=== PATIENT | female | born 1945 | race Caucasian/White ===

== ENCOUNTER 2024-06-27 07:57 | Outpatient (AMB) | payer MEDICARE, SELFPAY ==
[2024-06-27 08:04] VITALS: BP 131/65; PULSE 94; RESP 17; TEMP 36.3; O2SAT 98; BMI 27.6
--- NOTE | 2024-06-27 08:04 | PD.ORTHCLVIS ---
Vital signs 06/27/24 08:04 Height 1.57 m Height Method Stated Weight 68.181 kg Weight Measurement Method Standing Scale BMI 27.6 BP 131/65 H Blood Pressure Source Automatic Cuff Blood Pressure Location Right Upper Arm Position Sitting Respiration 17 Pulse 94 Pulse Source Monitor Temp 97.4 F Temp Source Temporal Artery Scan Pulse Oximetry (%) 98 Oxygen Delivery Method Room Air Med/Allergies Allergies & Medications Allergies adhesive tape Allergy (Unknown, Verified 06/27/24 08:05) Sulfa (Sulfonamide Antibiotics) Allergy (Unknown, Verified 06/27/24 08:05) Medication Reconciliation Multivitamins * (CENTRUM *) 1 tab PO QDAY ##0 07/03/14 [History Confirmed 06/27/24] gabapentin 100 mg capsule 300 mg PO BID #0 caps 07/03/14 [History Confirmed 06/27/24] amlodipine 5 mg tablet 5 mg PO HS 04/01/21 [History Confirmed 06/27/24] olmesartan 20 mg tablet 20 mg PO DAILY 04/01/21 [History Confirmed 06/27/24] Lactobacillus 40-Bifidobact 3-S.thermophilus 100 billion cell capsule (Probiotic) 1 cap PO DAILY 06/09/24 [History Confirmed 06/27/24] acetaminophen 500 mg tablet (Acetaminophen Extra Strength) 1,000 mg (2 x 500 mg) PO Q6H PRN pain #90 tabs 06/09/24 [Rx Confirmed 06/27/24] aspirin 81 mg tablet,delayed release 81 mg PO BID #60 tabs 06/09/24 [Rx Confirmed 06/27/24] doxycycline hyclate 100 mg tablet 100 mg PO BID #14 tabs 06/09/24 [Rx Confirmed 06/27/24] folic acid 800 mcg tablet 0.8 mg PO QDAY 06/09/24 [History Confirmed 06/27/24] gabapentin 300 mg capsule 300 mg PO .qhs #30 caps 06/09/24 [Rx Confirmed 06/27/24] oxycodone 5 mg tablet 5 mg PO Q6H PRN pain #28 tabs 06/09/24 [Rx Confirmed 06/27/24] patiromer calcium sorbitex 8.4 gram oral powder packet (Veltassa) 8.4 g PO USEASDIRECTD 06/09/24 [History Confirmed 06/27/24] sennosides 8.6 mg-docusate sodium 50 mg tablet (Senna-S) 1 tab-cap PO QDAY #30 tabs 06/09/24 [Rx Confirmed 06/27/24] acetaminophen 500 mg tablet (Acetaminophen Extra Strength) 1,000 mg (2 x 500 mg) PO Q6H PRN pain #90 tabs 06/19/24 [Rx Confirmed 06/27/24] cyclobenzaprine 5 mg tablet 5 mg PO TID muscle spasm #45 tabs 06/19/24 [Rx Confirmed 06/27/24] oxycodone 5 mg tablet 5 mg PO Q6H PRN pain #28 tabs 06/19/24 [Rx Confirmed 06/27/24] Subjective Visit Visit for: post op #1 and knee Immunization / Flu Flu Vaccine in the Last 12 Months: Yes Flu Vaccine Exclusion Criteria: Already Received History of Present Illness Chief complaint: 2 WK POST OP Patient is doing well status post right total knee replacement. She is doing well Pain Pain level (0-10): 6 Pain duration: COMES AND GOES Pain location: anterior Pain quality: sharp, dull and aching Pain timing: increases with activity Ambulatory data Ambulatory device: walker Treatments Improvement with previous injections: No Improvement with PT: No Improvement with NSAIDS: n/a Review of Systems Review of Systems: All systems negative unless otherwise noted in HPI. Exam Exam Patient is in no acute distress and is cooperative with the examination today. Patient has a normal mood and affect. Breathing is nonlabored. In no respiratory distress. Bilateral extremities were evaluated and demonstrates sensation intact to light touch. Palpable pedal pulses are present. No significant edema is present. Right knee incision is clean dry and intact Assessment and Plan Problem List (1) History of total right knee replacement: Status: Acute Plan: Patient is doing well status post right total knee replacement. She will start therapy outpatient. Will see her in 4 weeks Advanced Care Planning Discussion Advance care planning discussed with:: patient Office Procedures GNS Level of Care Nursing/Assessment Patient Status: Established Patient Nursing Assessment/Reassesment: Medication Reconciliation, Update PMH in EMR and Vital Signs Coordination of Care: Complex Care and Chronic Disease 1-5, Education Complex Pt/Fam, Consent,records obtained, informed consent, 1 Ins Authorization, Results/Orders obtained and Staff clarify orders Established Patient Charge Established Patient Point Assignment: 110 Established Patient Point Charge: EP Level 3 (80-115) Past Medical History Past Medical History Have you ever been diagnosed with any of the following: Neurological Problems Seizures: No Peripheral Neuropathy: Yes Migraine: No Head Trauma: No Cardiology Problems Heart Murmur: Yes Congestive Heart Failure: No Edema: No Hypertension: Yes Respiratory Problems Chronic Obstructive Pulmonary Disease (COPD): No Sleep Apnea: No Smoking: No Smoking Exposure: No Genital/Urinary Problems Renal Disease: No Reproductive Problems Breast Cancer: Yes (right breast) Previous Pregnancies: Yes Musculoskeletal Problems Arthritis: Yes Head,Eye,Nose,Throat Problems Cataracts: Yes (bilateral) Endocrine Problems Diabetes Mellitus Type 1: No Diabetes Mellitus Type 2: No Hypothyroidism: No Blood Problems Anemia: No Other Problems Hospitalization: Yes (surgery, breast cancer,) Shingles: No Falls: No Blood Transfusions: No Blood Transfusion Reaction: No Anesthesia Reactions: No Chemotherapy: Yes (2002) Radiation Therapy: Yes (2002) Measles: Yes Mumps: Yes Cancer: Yes Surgical History Total Knee Replacement: Yes Hysterectomy: No
== END 2024-06-27 08:49 | disposition home or self-care (01) ==
LOC: HODSRG 07:57
PROVIDERS: PCP Internal Medicine; Referring Provider Internal Medicine; Supervising Provider Orthopaedic Surgery Adult Reconstructive Orthopaedic Surgery; Visit Provider Orthopaedic Surgery Adult Reconstructive Orthopaedic Surgery
DX: Z96.651 Presence of right artificial knee joint (principal); I10 Essential (primary) hypertension
CPT/HCPCS: 99213; G0463

== ENCOUNTER → 2024-07-19 | Outpatient (CLI) | payer MEDICARE, SELFPAY ==
--- NOTE | 2024-07-19 | XR_ITS ---
Examination: Right knee 4 views TECHNIQUE: AP oblique lateral axial right knee 4 views standing Exam date and time: July 19, 2024 0947 hours INDICATIONS: Right knee surgery 5 weeks ago. FINDINGS: Moderate osteopenia Total right knee arthroplasty. Satisfactory alignment No loosening of the prosthetic components No fracture IMPRESSION: Total right knee arthroplasty with satisfactory alignment
[2024-07-19 08:06] LABS: Collection Type, Urine Clean Catch; Squamous Epithelial Cell,Urine 0 /hpf (0-5)
[2024-07-19 08:34] LABS: Bilirubin,Urine Negative (Negative); Blood,Urine Negative (Negative); Clarity,Urine Clear (Clear/Hazy); Color,Urine Lt-Yellow (Lt Yel-Yel); Glucose, Urine Negative (Negative); Ketones,Urine Negative (Negative); Leukocyte Esterase,Urine Negative (Negative); Nitrite,Urine Negative (Negative); Protein,Urine Negative (Neg - Trace); RBC,Urine 1 /hpf (0-3); Specific Gravity,Urine 1.012 (1.001-1.035); Urobilinogen,Urine Negative mg/dL (0.0-1.0); WBC,Urine < 1 /hpf (0-5)
[2024-07-19 08:36] LABS: Basophils # (Auto) 0.1 Thou/mm3 (0.0-0.2); Basophils % (Auto) 1 % (0-2.5); Eosinophils # (Auto) 0.2 Thou/mm3 (0.0-0.5); Eosinophils % (Auto) 3 % (0-10); Hematocrit 34.3 % (36.0-46.0); Hemoglobin 11.3 g/dL (12.0-16.0); Immature Granulocytes % (Auto) 0 % (0-0); Immature Granulocytes Auto 0.02 Thou/mm3 (0.00-0.00); Lymphocytes # (Auto) 1.7 Thou/mm3 (1.0-4.8); Lymphocytes % (Auto) 34 % (10-50); Mean Corpuscular HGB Conc 32.9 g/dl (31.0-37.0); Mean Corpuscular Volume 106 fL (80-100); Monocytes # (Auto) 0.4 Thou/mm3 (0.0-0.8); Monocytes % (Auto) 9 % (0-12); Neutrophils # (Auto) 2.5 Thou/mm3 (1.8-7.7); Neutrophils % (Auto) 52 % (37-80); Nucleated Red Blood Cell # 0.02 Thou/mm3 (0.00-0.00); Nucleated Red Blood Cell % 0 /100 WBC (0); Platelet Count 307 Thou/mm3 (140-440); RDW Standard Deviation 60.9 fL (36.4-46.3); Red Blood Count 3.23 Miln/mm3 (4.00-5.20); White Blood Count 4.8 Thou/mm3 (3.6-11.0)
[2024-07-19 08:37] LABS: Glucose Estimated Average 88 mg/dL (80-131); Hemoglobin A1C 4.7 % Hgb (4.8-6.0)
[2024-07-19 08:51] LABS: Vitamin B12 675 pg/mL (211-911); Vitamin D 25 Hydroxy Total 33.6 ng/mL (7.3-40.2)
[2024-07-19 08:56] LABS: Alanine Aminotransferase 23 U/L (10-49); Alkaline Phosphatase 116 U/L (46-116); Anion Gap 8 (7-16); Aspartate Amino Transferase 16 U/L (0-34); BUN/Creatinine Ratio 22 Ratio (12-20); Bilirubin,Total 0.5 mg/dL (0.3-1.2); Blood Urea Nitrogen 22 mg/dL (9-23); Calcium 9.9 mg/dL (8.3-10.6); Calcium (Corrected) 9.9 mg/dL (8.5-10.1); Carbon Dioxide 25.9 mMol/L (20.0-31.0); Chloride 104 mMol/L (98-107); Cholesterol 187 mg/dL (132-200); Globulin 2.5 gm/dL (2.3-3.5); Glucose 107 mg/dL (74-106); HDL Cholesterol 62 mg/dL (40-60); LDL Cholesterol,Calculated 110 mg/dL (0-130); Osmolality,Calculated 278 (275-295); Potassium 4.7 mMol/L (3.4-5.1); Sodium 138 mMol/L (136-145); Thyroid Stimulating Hormone 2.71 uIU/mL (0.55-4.78); Total Protein 7.5 gm/dL (5.7-8.2); Triglycerides 77 mg/dL (30-150); Uric Acid 7.1 mg/dL (3.1-7.8); eGFR 58 See Note
== END | disposition home or self-care (01) ==
LOC: COPL 07:20
PROVIDERS: PCP Internal Medicine; Referring Provider Orthopaedic Surgery Adult Reconstructive Orthopaedic Surgery; Visit Provider Radiology Diagnostic Radiology
DX: M17.11 Unilateral primary osteoarthritis, right knee (principal); Z96.651 Presence of right artificial knee joint; Z00.00 Encounter for general adult medical examination without abnormal findings; I10 Essential (primary) hypertension; D51.9 Vitamin B12 deficiency anemia, unspecified; E55.9 Vitamin D deficiency, unspecified
CPT/HCPCS: 36415; 73564; 80053; 80061; 81001; 82306; 82607; 83036; 84443; 84550; 85025

== ENCOUNTER 2024-07-25 10:52 | Outpatient (AMB) | payer MEDICARE, SELFPAY ==
--- NOTE | 2024-07-25 11:19 | PD.ORTHCLVIS ---
Vital signs 07/25/24 11:20 Height 1.57 m Height Method Stated Weight 68.096 kg Weight Measurement Method Standing Scale BMI 27.6 BP 147/72 H Blood Pressure Source Automatic Cuff Blood Pressure Location Right Upper Arm Position Sitting Respiration 18 Pulse 76 Pulse Source Monitor Temp 97.5 F Temp Source Temporal Artery Scan Pulse Oximetry (%) 96 Oxygen Delivery Method Room Air Med/Allergies Allergies & Medications Allergies adhesive tape Allergy (Unknown, Verified 07/25/24 11:27) Sulfa (Sulfonamide Antibiotics) Allergy (Unknown, Verified 07/25/24 11:27) Subjective Visit Visit for: follow up visit Immunization / Flu Flu Vaccine in the Last 12 Months: Yes Flu Vaccine Exclusion Criteria: No Exclusion Criteria History of Present Illness Chief complaint: POSTOP Patient is doing well status post right total knee replacement. She is doing well Pain Pain level (0-10): 3 Pain duration: COMES AND GOES Pain location: anterior and posterior Pain quality: sharp, dull and aching Pain timing: increases with activity Ambulatory data Ambulatory device: none Treatments Improvement with previous injections: No Improvement with PT: No Improvement with NSAIDS: n/a Review of Systems Review of Systems: All systems negative unless otherwise noted in HPI. Exam Exam Patient is in no acute distress and is cooperative with the examination today. Patient has a normal mood and affect. Breathing is nonlabored. In no respiratory distress. Bilateral extremities were evaluated and demonstrates sensation intact to light touch. Palpable pedal pulses are present. No significant edema is present. Right knee incision is clean dry and intact Assessment and Plan Problem List (1) History of total right knee replacement: Status: Acute Plan: Patient is doing well status post right total knee replacement. She will start therapy outpatient. Will see her in 6 weeks Advanced Care Planning Discussion Advance care planning discussed with:: patient and spouse Office Procedures GNS Level of Care Nursing/Assessment Patient Status: Established Patient Nursing Assessment/Reassesment: Medication Reconciliation, Update PMH in EMR and Vital Signs Coordination of Care: Complex Care and Chronic Disease 1-5, Education Complex Pt/Fam, Consent,records obtained, informed consent, Results/Orders obtained and Staff clarify orders Established Patient Charge Established Patient Point Assignment: 95 Established Patient Point Charge: EP Level 3 (80-115) Past Medical History Past Medical History Have you ever been diagnosed with any of the following: Neurological Problems Seizures: No Peripheral Neuropathy: Yes Migraine: No Head Trauma: No Cardiology Problems Heart Murmur: Yes Congestive Heart Failure: No Edema: No Hypertension: Yes Respiratory Problems Chronic Obstructive Pulmonary Disease (COPD): No Sleep Apnea: No Smoking: No Smoking Exposure: No Genital/Urinary Problems Renal Disease: No Reproductive Problems Breast Cancer: Yes (right breast) Previous Pregnancies: Yes Musculoskeletal Problems Arthritis: Yes Head,Eye,Nose,Throat Problems Cataracts: Yes (bilateral) Endocrine Problems Diabetes Mellitus Type 1: No Diabetes Mellitus Type 2: No Hypothyroidism: No Blood Problems Anemia: No Other Problems Hospitalization: Yes (surgery, breast cancer,) Shingles: No Falls: No Blood Transfusions: No Blood Transfusion Reaction: No Anesthesia Reactions: No Chemotherapy: Yes (2002) Radiation Therapy: Yes (2002) Measles: Yes Mumps: Yes Cancer: Yes Surgical History Total Knee Replacement: Yes Hysterectomy: No
[2024-07-25 11:20] VITALS: BP 147/72; PULSE 76; RESP 18; TEMP 36.4; O2SAT 96; BMI 27.6
== END 2024-07-25 11:33 | disposition home or self-care (01) ==
LOC: HODSRG 10:52
PROVIDERS: PCP Internal Medicine; Referring Provider Internal Medicine; Supervising Provider Orthopaedic Surgery Adult Reconstructive Orthopaedic Surgery; Visit Provider Orthopaedic Surgery Adult Reconstructive Orthopaedic Surgery
DX: Z96.651 Presence of right artificial knee joint (principal); I10 Essential (primary) hypertension
CPT/HCPCS: 99213; G0463

== ENCOUNTER → 2024-08-07 | Outpatient (CLI) | payer MEDICARE, SELFPAY ==
--- NOTE | 2024-08-07 13:00 | XR_ITS ---
Examination: Breast ultrasound, unilateral, left complete Date and time of exam: August 07, 2024 1317 hours INDICATIONS: Mammogram June 27, 2024 10 mm focal asymmetry upper left breast MLO view, 3.7 cm from the nipple Technique: Real-time harper scale ultrasonographic imaging performed left breast including all 4 quadrants as well as nipple retroareolar and axillary region. Findings: No cystic or solid mass IMPRESSION: BI-RADS Category 1: Negative study
--- NOTE | 2024-08-07 13:30 | XR_ITS ---
Examination: Diagnostic digital mammography, unilateral, left Computer aided detection 3-D breast Tomosynthesis, unilateral Date and time of exam: August 07, 2024 1325 hours INDICATIONS: Mammogram June 27, 2024 10 mm focal asymmetry upper left breast MLO view 3.7 cm the nipple Technique: Nonmagnified MLO, CC views of the left breast have been obtained, reconstructed from 3-D Tomosynthesis images. R2 computer aided detection program utilized for evaluation of suspicious masses and/or abnormal calcifications. 3-D Tomosynthesis images obtained. Findings: Scattered areas of fibroglandular density Benign calcifications There does remain focal asymmetry upper left breast MLO view, 10 mm Impression: BI-RADS category 3: Probably benign findings Recommend 1 additional 6 month left mammogram follow-up to document stability of focal asymmetry described above
== END | disposition home or self-care (01) ==
LOC: CDIM 12:55
PROVIDERS: PCP Internal Medicine; Referring Provider Internal Medicine; Visit Provider Internal Medicine
DX: R92.8 Other abnormal and inconclusive findings on diagnostic imaging of breast (principal); N64.89 Other specified disorders of breast
CPT/HCPCS: 76641; 77061; 77065; G0279

== ENCOUNTER 2024-08-11 08:00 | Outpatient (RCR) | payer MEDICARE, SELFPAY ==
--- NOTE | 2024-07-20 11:39 | PT.OIERPT ---
PT OP Initial Eval Patient Information Outpatient Physical Therapy Treatment Date: 07/20/24 Visit Reasons: Post op Right knee Medical Diagnosis: Right Knee OA Treatment Dx #1: Right Knee Mobility Deficits Treatment Dx #2: Right Knee Pain Start of Care: 07/20/24 Date of Onset: 06/12/24 Smoking Status Smoking Status: Never smoker Initial Assessment Subjective: Pt is a 79 y/o female s/p right TKA 06/12/24. Pt received a few sessions of homehealth PT but felt it was not helpful.Pt still has pain (7/10) with all activities. Pt has limitation with standing, walking, chores, self care, balance, getting in/out of car, and performing recreational activities. Objective: Right Knee AROM: -10 deg to 82 deg Right Knee PROM: -7 deg to 93 deg Right Knee MMTs: grossly 3+/5 Right Hip MMTs: grossly 3/5 Assessment: Pt demonstrate right knee mobility and strength deficits s/p TKA leading to difficulty with ADLs. Pt will benefit from physical therapy to increase ROM, strength, and work on mobility. Short Term and S[employer] Enterprise Portal Consultant Goals 1) Decrease knee extension lag to -6 deg in 12 wks to have a normal gait pattern 2) Increase right knee flexion AROM to 115 deg in 12 wks to be able to perform squatting activities 3) Increase right knee MMTs grossly to 4/5 in 12 wks to be able to perform stairs and steps 4) Increase right hip MMTs grossly to 4-/5 in 12 wks to be able to walk more than 30 mins 5) Indep with HEP Treatment Plan 1) Manual Therapy 2) Therapeutic Activities 3) Therapeutic Exercises 4) Modalities (ice, heat) 5) Balance Training 6) Gait Training Frequency and Duration: 2 x wk for 12 wks Certification Dates: 07/20/24 to 10/18/24 Procedure Charges OP PT Eval Mod Complex 30 minutes: Yes
--- NOTE | 2024-07-25 10:35 | PT.ODAYNRPT ---
PT Outpatient Daily Note OP Daily Note Outpatient Physical Therapy Treatment Date: 07/25/24 Visit Reasons: Post op Right knee Subjective: Pt reports knee stiffness, mentioned she has a follow up with surgeon Jeffrey today after PT session. Objective: Please see flow sheet for ther ex list. Assessment: Pt instructed and educated on HEP. Plan: Continue with POC. Length of Time (minutes) of Treatment: 30 Minutes RETAIL AND PROMOTIONS COORDINATOR Service Modifier Method I: Divide the number of min of care provided by the RETAIL AND PROMOTIONS COORDINATOR/VARSHA by the total min of care provided then multiply by 100. If greater than 11 percent modifier is required. Method II: Divide the total time of care provided to patient by 10 (round to the nearest whole number) and add 1 min. to set the minimum time requirement. If treatment total was 60 min., then 10% of 6 min PT CQ modifier applied: CQ Modifier applied Procedure Charges Therapeutic Exercise 30 minutes: Yes
--- NOTE | 2024-07-27 10:42 | PT.ODAYNRPT ---
PT Outpatient Daily Note OP Daily Note Outpatient Physical Therapy Treatment Date: 07/27/24 Visit Reasons: Post op Right knee Subjective: Pt reports R knee is doing better. As per pt she had follow up with surgeon a few days ago and surgeon content with current progress. Objective: Please see flow sheet for ther ex list. Assessment: Able to reach increase range during PROM stretches in the direction of flexion. Plan: Continue with POc. Length of Time (minutes) of Treatment: 30 Minutes BULL GANG WORKER Service Modifier Method I: Divide the number of min of care provided by the BULL GANG WORKER/HOSPITAL SALES REPRESENTATIVE by the total min of care provided then multiply by 100. If greater than 11 percent modifier is required. Method II: Divide the total time of care provided to patient by 10 (round to the nearest whole number) and add 1 min. to set the minimum time requirement. If treatment total was 60 min., then 10% of 6 min PT CQ modifier applied: CQ Modifier applied Procedure Charges Therapeutic Exercise 30 minutes: Yes
--- NOTE | 2024-08-01 14:10 | PT.ODAYNRPT ---
PT Outpatient Daily Note OP Daily Note Outpatient Physical Therapy Treatment Date: 08/01/24 Visit Reasons: Post op Right knee Subjective: Pt reports R knee is stiff today. Objective: Please see flow sheet for ther ex list. Assessment: Performed PROM to pt tolerance, able to reach range past 90 deg with pain. Plan: Continue with pOC. Length of Time (minutes) of Treatment: 30 Minutes CONTRACT ACCOUNTANT Service Modifier Method I: Divide the number of min of care provided by the CONTRACT ACCOUNTANT/VARSHA by the total min of care provided then multiply by 100. If greater than 11 percent modifier is required. Method II: Divide the total time of care provided to patient by 10 (round to the nearest whole number) and add 1 min. to set the minimum time requirement. If treatment total was 60 min., then 10% of 6 min PT CQ modifier applied: CQ Modifier applied Procedure Charges Therapeutic Exercise 30 minutes: Yes
--- NOTE | 2024-08-04 14:05 | PT.ODAYNRPT ---
PT Outpatient Daily Note OP Daily Note Outpatient Physical Therapy Treatment Date: 08/04/24 Visit Reasons: Post op Right knee Subjective: Pt reports progress with R knee, mentioned knee has loosened up making it easier to walk and perform ADL's. Objective: Please see flow sheet for ther ex list. R knee AROM 89 deg. Assessment: Pt ambulating with normal gait no AD indicating progress. Pt ROM continues to improve as indicated in above measurements. Plan: Continue with POc. Length of Time (minutes) of Treatment: 30 Minutes DIRECTOR OF CORPORATE COMMUNICATIONS Service Modifier Method I: Divide the number of min of care provided by the DIRECTOR OF CORPORATE COMMUNICATIONS/VARSHA by the total min of care provided then multiply by 100. If greater than 11 percent modifier is required. Method II: Divide the total time of care provided to patient by 10 (round to the nearest whole number) and add 1 min. to set the minimum time requirement. If treatment total was 60 min., then 10% of 6 min PT CQ modifier applied: CQ Modifier applied Procedure Charges Therapeutic Exercise 30 minutes: Yes
--- NOTE | 2024-08-11 09:04 | PT.ODAYNRPT ---
PT Outpatient Daily Note OP Daily Note Outpatient Physical Therapy Treatment Date: 08/11/24 Visit Reasons: Post op Right knee Subjective: Pt's knee sore from packing and going up/down RV stairs. Objective: Right Knee AROM: 105 deg Assessment: progressing with knee ROM with less pain reported Plan: Continue with PT Length of Time (minutes) of Treatment: 30 Minutes Procedure Charges Therapeutic Exercise 30 minutes: Yes
== END 2024-08-15 23:59 | disposition home or self-care (01) ==
LOC: CPTX 08:00
PROVIDERS: PCP Internal Medicine; Referring Provider Orthopaedic Surgery Adult Reconstructive Orthopaedic Surgery; Visit Provider Orthopaedic Surgery Adult Reconstructive Orthopaedic Surgery
DX: M25.561 Pain in right knee (principal); R26.2 Difficulty in walking, not elsewhere classified; R26.89 Other abnormalities of gait and mobility; Z96.651 Presence of right artificial knee joint
CPT/HCPCS: 97110; 97162

== ENCOUNTER 2024-09-14 12:37 | Outpatient (RCR) | payer BC, MEDICARE, SELFPAY ==
--- NOTE | 2024-09-14 13:19 | PT.ODS1RPT ---
PT OP Progress/Discharge Note Date of Service: 09/14/24 Progress Note/DC Note Progress Note/Discharge Note: DC Note Patient Information Visit Reasons: POST OP RIGHT KNEE SURGERY Medical Diagnosis: Right Knee OA Treatment Dx #1: Right Knee Pain Service Continue Service or Discharge: Discharge Discharge Date: 09/14/24 Status Subjective: Pt's knee feels good. Pt mentioned she recently came back from her month long vacation. Pt has been able to walk, stand, perform chores, and recreational activities with minimal limitation. At this time Pt feels comfortable being release from care with exercises to continue at home. Objective: Right Knee AROM: -5 deg to 120 deg Right Knee MMTs: grossly 4/5 Right Hip MMTs: grossly 4-/5 SLS: 15 sec Assessment: Pt demonstrate functional right knee mobility and strength allowing her to resume ADLs with minimal limitation. Pt has met all goals in therapy and will no longer benefit from physical therapy. Pt was instructed on HEP last session and educated to continue exercises to maintain overall mobility. Pt performed all exercises safely, thank you for your referrals. Plan: D/C home with HEP and follow up with MD YANEZ Procedure Charges Therapeutic Exercise 30 minutes: Yes
== END 2024-09-15 23:59 | disposition home or self-care (01) ==
LOC: CPTX 12:37
PROVIDERS: PCP Orthopaedic Surgery Adult Reconstructive Orthopaedic Surgery; Referring Provider Orthopaedic Surgery Adult Reconstructive Orthopaedic Surgery; Visit Provider Orthopaedic Surgery Adult Reconstructive Orthopaedic Surgery
DX: M25.561 Pain in right knee (principal); R26.2 Difficulty in walking, not elsewhere classified; R26.89 Other abnormalities of gait and mobility; Z96.651 Presence of right artificial knee joint; M17.11 Unilateral primary osteoarthritis, right knee
CPT/HCPCS: 97110

== ENCOUNTER 2024-09-26 09:21 | Outpatient (AMB) | payer MEDICARE, SELFPAY ==
--- NOTE | 2024-09-26 09:59 | PD.ORTHCLVIS ---
Vital signs 09/26/24 10:00 Height 1.57 m Height Method Stated Weight 68.209 kg Weight Measurement Method Standing Scale BMI 27.6 BP 147/74 H Blood Pressure Source Automatic Cuff Blood Pressure Location Right Upper Arm Position Sitting Respiration 18 Pulse 67 Pulse Source Monitor Temp 97.7 F Temp Source Temporal Artery Scan Pulse Oximetry (%) 97 Oxygen Delivery Method Room Air Med/Allergies Allergies & Medications Allergies adhesive tape Allergy (Unknown, Verified 09/26/24 10:01) Sulfa (Sulfonamide Antibiotics) Allergy (Unknown, Verified 09/26/24 10:01) Medication Reconciliation Multivitamins * (CENTRUM *) 1 tab PO QDAY ##0 07/03/14 [History Confirmed 09/26/24] gabapentin 100 mg capsule 300 mg PO BID #0 caps 07/03/14 [History Confirmed 09/26/24] amlodipine 5 mg tablet 5 mg PO HS 04/01/21 [History Confirmed 09/26/24] olmesartan 20 mg tablet 20 mg PO DAILY 04/01/21 [History Confirmed 09/26/24] Lactobacillus 40-Bifidobact 3-S.thermophilus 100 billion cell capsule (Probiotic) 1 cap PO DAILY 06/09/24 [History Confirmed 09/26/24] acetaminophen 500 mg tablet (Acetaminophen Extra Strength) 1,000 mg (2 x 500 mg) PO Q6H PRN pain #90 tabs 06/09/24 [Rx Confirmed 09/26/24] aspirin 81 mg tablet,delayed release 81 mg PO BID #60 tabs 06/09/24 [Rx Confirmed 09/26/24] doxycycline hyclate 100 mg tablet 100 mg PO BID #14 tabs 06/09/24 [Rx Confirmed 09/26/24] folic acid 800 mcg tablet 0.8 mg PO QDAY 06/09/24 [History Confirmed 09/26/24] gabapentin 300 mg capsule 300 mg PO .qhs #30 caps 06/09/24 [Rx Confirmed 09/26/24] oxycodone 5 mg tablet 5 mg PO Q6H PRN pain #28 tabs 06/09/24 [Rx Confirmed 09/26/24] patiromer calcium sorbitex 8.4 gram oral powder packet (Veltassa) 8.4 g PO USEASDIRECTD 06/09/24 [History Confirmed 09/26/24] sennosides 8.6 mg-docusate sodium 50 mg tablet (Senna-S) 1 tab-cap PO QDAY #30 tabs 06/09/24 [Rx Confirmed 09/26/24] acetaminophen 500 mg tablet (Acetaminophen Extra Strength) 1,000 mg (2 x 500 mg) PO Q6H PRN pain #90 tabs 06/19/24 [Rx Confirmed 09/26/24] cyclobenzaprine 5 mg tablet 5 mg PO TID muscle spasm #45 tabs 07/16/24 [Rx Confirmed 09/26/24] oxycodone 5 mg tablet 5 mg PO Q6H PRN pain #28 tabs 07/16/24 [Rx Confirmed 09/26/24] tramadol 50 mg tablet 50 mg PO Q6H PRN pain #20 tabs 07/25/24 [Rx Confirmed 09/26/24] Exam Exam Patient is in no acute distress and is cooperative with the examination today. Patient has a normal mood and affect. Breathing is nonlabored. In no respiratory distress. Bilateral extremities were evaluated and demonstrates sensation intact to light touch. Palpable pedal pulses are present. No significant edema is present. Right knee incision is clean dry and intact. Rom is 0-120 degrees Assessment and Plan Problem List (1) History of total right knee replacement: Status: Acute Plan: Patient is doing well status post right total knee replacement. We will see her back in 7 months with new x-rays. She has no pain at all Advanced Care Planning Discussion Advance care planning discussed with:: patient and spouse Office Procedures GNS Level of Care Nursing/Assessment Patient Status: Established Patient Nursing Assessment/Reassesment: Medication Reconciliation, Update PMH in EMR and Vital Signs Coordination of Care: Complex Care and Chronic Disease 1-5, Education Complex Pt/Fam, Consent,records obtained, informed consent, Results/Orders obtained and Staff clarify orders Established Patient Charge Established Patient Point Assignment: 95 Established Patient Point Charge: EP Level 3 (80-115) MA Intake Visit Data Collection New Patient or Established: Established Patient (seen at [facility] within 3 years) Reason for Visit:: 2 MONTH FOLLOW UP Seen by Clinical Staff ONLY (RN/MA): No Verbal consent obtained for Telemed visit?: No Medical Laboratory Technical Officer Required: No PCP or OBGYN visit in last 3 months: Yes Hx Now: No Do You Feel Safe at Home: Yes Authorities Contacted: N/A Questionairres Past Medical History Past Medical History Have you ever been diagnosed with any of the following: Neurological Problems Seizures: No Peripheral Neuropathy: Yes Migraine: No Head Trauma: No Cardiology Problems Heart Murmur: Yes Congestive Heart Failure: No Edema: No Hypertension: Yes Respiratory Problems Chronic Obstructive Pulmonary Disease (COPD): No Sleep Apnea: No Smoking: No Smoking Exposure: No Genital/Urinary Problems Renal Disease: No Reproductive Problems Breast Cancer: Yes (right breast) Previous Pregnancies: Yes Musculoskeletal Problems Arthritis: Yes Head,Eye,Nose,Throat Problems Cataracts: Yes (bilateral) Endocrine Problems Diabetes Mellitus Type 1: No Diabetes Mellitus Type 2: No Hypothyroidism: No Blood Problems Anemia: No Other Problems Hospitalization: Yes (surgery, breast cancer,) Shingles: No Falls: No Blood Transfusions: No Blood Transfusion Reaction: No Anesthesia Reactions: No Chemotherapy: Yes (2002) Radiation Therapy: Yes (2002) Measles: Yes Mumps: Yes Cancer: Yes Surgical History Total Knee Replacement: Yes Hysterectomy: No Subjective Visit Visit for: follow up visit and knee Immunization / Flu Flu Vaccine in the Last 12 Months: No Flu Vaccine Exclusion Criteria: No Exclusion Criteria History of Present Illness Chief complaint: 2 MONTH FOLLOW UP Steffanie is doing great 3 months out from surgery. She has minimal pain Personal History Occupation: RETIRED Pain Pain level (0-10): 0 Pain duration: NONE Ambulatory data Ambulatory device: none Treatments Improvement with previous injections: No Improvement with PT: No Improvement with NSAIDS: no Review of Systems Review of Systems: All systems negative unless otherwise noted in HPI.
[2024-09-26 10:00] VITALS: BP 147/74; PULSE 67; RESP 18; TEMP 36.5; O2SAT 97; BMI 27.6
== END 2024-09-26 10:14 | disposition home or self-care (01) ==
LOC: HODSRG 09:21
PROVIDERS: PCP Internal Medicine; Referring Provider Internal Medicine; Supervising Provider Orthopaedic Surgery Adult Reconstructive Orthopaedic Surgery; Visit Provider Orthopaedic Surgery Adult Reconstructive Orthopaedic Surgery
DX: Z96.651 Presence of right artificial knee joint (principal); I10 Essential (primary) hypertension
CPT/HCPCS: 99213; G0463

== ENCOUNTER → 2024-11-01 | Outpatient (CLI) | payer MEDICARE, SELFPAY ==
--- NOTE | 2024-11-01 15:26 | XR_ITS ---
Examination: Shoulder,left, 3 views Technique: Shoulder AP internal rotation, AP external rotation, Y view shoulder, 3 views Exam date and time :25 1544 hours INDICATIONS: Onset shoulder pain with joint popping yesterday FINDINGS: Prominent osteopenia Moderate narrowing glenohumeral joint Moderate osteoarthritis acromioclavicular joint No fracture IMPRESSION: Moderate osteoarthritis
== END | disposition home or self-care (01) ==
PROVIDERS: PCP Internal Medicine; Referring Provider Internal Medicine; Visit Provider Internal Medicine
DX: M19.012 Primary osteoarthritis, left shoulder (principal)
CPT/HCPCS: 73030

== ENCOUNTER → 2025-01-25 | Outpatient (CLI) | payer MEDICARE, SELFPAY ==
[2025-01-25 12:27] LABS: Parathyroid Hormone Intact 41.3 pg/ml (18.5-88.0)
[2025-01-25 12:28] LABS: Albumin, Serum 4.6 gm/dL (3.4-4.8); Anion Gap 9 (7-16); BUN/Creatinine Ratio 16 Ratio (12-20); Blood Urea Nitrogen 16 mg/dL (9-23); Calcium 9.6 mg/dL (8.3-10.6); Calcium (Corrected) 9.6 mg/dL (8.5-10.1); Carbon Dioxide 27.7 mMol/L (20.0-31.0); Chloride 103 mMol/L (98-107); Glucose 97 mg/dL (74-106); Osmolality,Calculated 280 (275-295); Phosphorous 3.2 mg/dL (2.4-5.1); Potassium 4.6 mMol/L (3.4-5.1); Sodium 140 mMol/L (136-145); eGFR 58 See Note
== END | disposition home or self-care (01) ==
LOC: COPL 11:13
PROVIDERS: PCP Internal Medicine; Referring Provider Internal Medicine; Visit Provider Internal Medicine
DX: I12.9 Hypertensive chronic kidney disease with stage 1 through stage 4 chronic kidney disease, or unspecified chronic kidney disease (principal); N18.30 Chronic kidney disease, stage 3 unspecified
CPT/HCPCS: 36415; 80069; 83970

== ENCOUNTER → 2025-04-11 | Outpatient (CLI) | payer MEDICARE, SELFPAY ==
--- NOTE | 2025-04-11 | XR_ITS ---
Examination: Bilateral knees 2 views Right lateral knee left lateral knee 2 views Bilateral axial knees single view TECHNIQUE: Bilateral AP knees standing single view, bilateral PA knees standing flexion single view Standing right lateral knee left lateral knee 2 views Bilateral axial knees single view total 5 views INDICATIONS: Knee pain, chronic FINDINGS: Moderate osteopenia. Bilateral total knee arthroplasties. Satisfactory alignment. No fractures No patellar dislocation. No loosening of the prosthetic components IMPRESSION: Bilateral total knee arthroplasties with satisfactory alignment
== END | disposition home or self-care (01) ==
PROVIDERS: PCP Internal Medicine; Referring Provider Internal Medicine; Visit Provider Internal Medicine
DX: M25.562 Pain in left knee (principal); M25.561 Pain in right knee; Z96.653 Presence of artificial knee joint, bilateral
CPT/HCPCS: 73564

== ENCOUNTER 2025-04-26 09:32 | Outpatient (AMB) | payer MEDICARE, SELFPAY ==
[2025-04-26 09:41] VITALS: BP 120/65; PULSE 65; RESP 20; TEMP 36.6; O2SAT 94; BMI 27.6
--- NOTE | 2025-04-26 09:41 | PD.ORTHCLVIS ---
Vital signs 04/26/25 09:41 Height 1.57 m Height Method Measured Weight 68.124 kg Weight Measurement Method Standing Scale BMI 27.6 BP 120/65 Blood Pressure Source Automatic Cuff Blood Pressure Location Left Upper Arm Position Sitting Respiration 20 Pulse 65 Pulse Source Monitor Temp 97.8 F Temp Source Temporal Artery Scan Pulse Oximetry (%) 94 L Oxygen Delivery Method Room Air Med/Allergies Allergies & Medications Allergies adhesive tape Allergy (Unknown, Verified 04/26/25 09:42) Sulfa (Sulfonamide Antibiotics) Allergy (Unknown, Verified 04/26/25 09:42) Medication Reconciliation Multivitamins * (CENTRUM *) 1 tab PO QDAY ##0 07/03/14 [History Confirmed 04/26/25] gabapentin 100 mg capsule 300 mg PO BID #0 caps 07/03/14 [History Confirmed 04/26/25] amlodipine 5 mg tablet 5 mg PO HS 04/01/21 [History Confirmed 04/26/25] olmesartan 20 mg tablet 20 mg PO DAILY 04/01/21 [History Confirmed 04/26/25] Lactobacillus 40-Bifidobact 3-S.thermophilus 100 billion cell capsule (Probiotic) 1 cap PO DAILY 06/09/24 [History Confirmed 04/26/25] acetaminophen 500 mg tablet (Acetaminophen Extra Strength) 1,000 mg (2 x 500 mg) PO Q6H PRN pain #90 tabs 06/09/24 [Rx Confirmed 04/26/25] aspirin 81 mg tablet,delayed release 81 mg PO BID #60 tabs 06/09/24 [Rx Confirmed 04/26/25] doxycycline hyclate 100 mg tablet 100 mg PO BID #14 tabs 06/09/24 [Rx Confirmed 04/26/25] folic acid 800 mcg tablet 0.8 mg PO QDAY 06/09/24 [History Confirmed 04/26/25] gabapentin 300 mg capsule 300 mg PO .qhs #30 caps 06/09/24 [Rx Confirmed 04/26/25] oxycodone 5 mg tablet 5 mg PO Q6H PRN pain #28 tabs 06/09/24 [Rx Confirmed 04/26/25] patiromer calcium sorbitex 8.4 gram oral powder packet (Veltassa) 8.4 g PO USEASDIRECTD 06/09/24 [History Confirmed 04/26/25] sennosides 8.6 mg-docusate sodium 50 mg tablet (Senna-S) 1 tab-cap PO QDAY #30 tabs 06/09/24 [Rx Confirmed 04/26/25] acetaminophen 500 mg tablet (Acetaminophen Extra Strength) 1,000 mg (2 x 500 mg) PO Q6H PRN pain #90 tabs 06/19/24 [Rx Confirmed 04/26/25] cyclobenzaprine 5 mg tablet 5 mg PO TID muscle spasm #45 tabs 07/16/24 [Rx Confirmed 04/26/25] oxycodone 5 mg tablet 5 mg PO Q6H PRN pain #28 tabs 07/16/24 [Rx Confirmed 04/26/25] tramadol 50 mg tablet 50 mg PO Q6H PRN pain #20 tabs 07/25/24 [Rx Confirmed 04/26/25] Exam Exam Patient is in no acute distress and is cooperative with the examination today. Patient has a normal mood and affect. Breathing is nonlabored. In no respiratory distress. Bilateral extremities were evaluated and demonstrates sensation intact to light touch. Palpable pedal pulses are present. No significant edema is present. Right knee incision is clean dry and intact. Rom is 0-120 degrees Right knee x-rays demonstrate a cementless total knee replacement in good alignment and positionin Assessment and Plan Problem List (1) History of total right knee replacement: Status: Acute Plan: Patient is doing well status post right total knee replacement. We will see her back in 12 months with new x-rays. She is doing well. Advanced Care Planning Discussion Advance care planning discussed with:: patient and spouse Office Procedures GNS Level of Care Nursing/Assessment Patient Status: Established Patient Nursing Assessment/Reassesment: Medication Reconciliation, Orthostatic Vitals, Update PMH in EMR and Vital Signs Coordination of Care: Complex Care and Chronic Disease 1-5, Education Complex Pt/Fam, Consent,records obtained, informed consent, Results/Orders obtained and Staff clarify orders Established Patient Charge Established Patient Point Assignment: 105 Established Patient Point Charge: EP Level 3 (80-115) MA Intake Visit Data Collection New Patient or Established: Established Patient (seen at [facility] within 3 years) Reason for Visit:: 7 MONTH F/U Seen by Clinical Staff ONLY (RN/MA): No Verbal consent obtained for Telemed visit?: No Manager Assembly Required: No PCP or OBGYN visit in last 3 months: Yes Hx Now: No Do You Feel Safe at Home: Yes Authorities Contacted: N/A Questionairres Past Medical History Past Medical History Have you ever been diagnosed with any of the following: Neurological Problems Seizures: No Peripheral Neuropathy: Yes Migraine: No Head Trauma: No Cardiology Problems Heart Murmur: Yes Congestive Heart Failure: No Edema: No Hypertension: Yes Respiratory Problems Chronic Obstructive Pulmonary Disease (COPD): No Sleep Apnea: No Smoking: No Smoking Exposure: No Genital/Urinary Problems Renal Disease: No Reproductive Problems Breast Cancer: Yes (right breast) Previous Pregnancies: Yes Musculoskeletal Problems Arthritis: Yes Head,Eye,Nose,Throat Problems Cataracts: Yes (bilateral) Endocrine Problems Diabetes Mellitus Type 1: No Diabetes Mellitus Type 2: No Hypothyroidism: No Blood Problems Anemia: No Other Problems Hospitalization: Yes (surgery, breast cancer,) Shingles: No Falls: No Blood Transfusions: No Blood Transfusion Reaction: No Anesthesia Reactions: No Chemotherapy: Yes (2002) Radiation Therapy: Yes (2002) Measles: Yes Mumps: Yes Cancer: Yes Surgical History Total Knee Replacement: Yes Hysterectomy: No Subjective Visit Visit for: follow up visit and knee Immunization / Flu Flu Vaccine in the Last 12 Months: No Flu Vaccine Exclusion Criteria: No Exclusion Criteria History of Present Illness Chief complaint: 7 MONTH F/U Steffanie is doing great 12 months out from surgery. She has minimal pain Personal History Occupation: RETIRED Pain Pain level (0-10): 0 Pain duration: NONE Ambulatory data Ambulatory device: none Treatments Improvement with previous injections: No Improvement with PT: No Improvement with NSAIDS: no Review of Systems Review of Systems: All systems negative unless otherwise noted in HPI.
== END 2025-04-26 09:59 | disposition home or self-care (01) ==
PROVIDERS: PCP Internal Medicine; Referring Provider Internal Medicine; Supervising Provider Orthopaedic Surgery Adult Reconstructive Orthopaedic Surgery; Visit Provider Orthopaedic Surgery Adult Reconstructive Orthopaedic Surgery
DX: Z96.651 Presence of right artificial knee joint (principal); I10 Essential (primary) hypertension
CPT/HCPCS: 99213; G0463

== ENCOUNTER → 2025-06-18 | Outpatient (CLI) | payer MEDICARE, SELFPAY ==
--- NOTE | 2025-06-18 09:25 | XR_ITS ---
Examination: Shoulder, left, 3 views Technique: Shoulder AP internal rotation, AP external rotation, Y view shoulder, 3 views Exam date and time : June 18, 2025, 1046 hours INDICATIONS: Left shoulder pain beginning 4 days ago. FINDINGS: Mild to moderate osteoarthritis glenohumeral joint Moderate osteoarthritis acromioclavicular joint No shoulder fracture or dislocation IMPRESSION: Mild to moderate osteoarthritis glenohumeral joint Moderate osteoarthritis acromioclavicular joint
== END | disposition home or self-care (01) ==
LOC: CDIM 09:14
PROVIDERS: PCP Internal Medicine; Referring Provider Internal Medicine; Visit Provider Internal Medicine
DX: M19.012 Primary osteoarthritis, left shoulder (principal)
CPT/HCPCS: 73030

== ENCOUNTER → 2025-06-27 | Outpatient (CLI) | payer MEDICARE, SELFPAY ==
[2025-06-27 08:11] LABS: Collection Type, Urine Clean Catch
[2025-06-27 08:39] LABS: Basophils # (Auto) 0.0 Thou/mm3 (0.0-0.2); Basophils % (Auto) 1 % (0-2.5); Eosinophils # (Auto) 0.2 Thou/mm3 (0.0-0.5); Eosinophils % (Auto) 3 % (0-10); Hematocrit 34.2 % (36.0-46.0); Hemoglobin 11.6 g/dL (12.0-16.0); Immature Granulocytes Auto 0.01 Thou/mm3 (0.00-0.00); Lymphocytes # (Auto) 1.8 Thou/mm3 (1.0-4.8); Lymphocytes % (Auto) 35 % (10-50); Mean Corpuscular HGB Conc 33.9 g/dl (31.0-37.0); Mean Corpuscular Hemoglobin 35.4 pg (25.0-35.0); Mean Corpuscular Volume 104 fL (80-100); Monocytes # (Auto) 0.4 Thou/mm3 (0.0-0.8); Monocytes % (Auto) 8 % (0-12); Neutrophils # (Auto) 2.7 Thou/mm3 (1.8-7.7); Neutrophils % (Auto) 53 % (37-80); Nucleated Red Blood Cell # 0.00 Thou/mm3 (0.00-0.00); Nucleated Red Blood Cell % 0 /100 WBC (0); Platelet Count 304 Thou/mm3 (140-440); RDW Standard Deviation 56.7 fL (36.4-46.3); Red Blood Count 3.28 Miln/mm3 (4.00-5.20); White Blood Count 5.1 Thou/mm3 (3.6-11.0)
[2025-06-27 08:48] LABS: Bilirubin,Urine Negative (Negative); Blood,Urine Negative (Negative); Clarity,Urine Clear (Clear/Hazy); Color,Urine Lt-Yellow (Lt Yel-Yel); Glucose, Urine Negative (Negative); Ketones,Urine Negative (Negative); Leukocyte Esterase,Urine Negative (Negative); Nitrite,Urine Negative (Negative); PH,Urine 6.5 (5.0-7.0); Protein,Urine Negative (Neg - Trace); RBC,Urine 1 /hpf (0-3); Specific Gravity,Urine 1.015 (1.001-1.035); Squamous Epithelial Cell,Urine < 1 /hpf (0-5); Urobilinogen,Urine Negative mg/dL (0.0-1.0); WBC,Urine 2 /hpf (0-5)
[2025-06-27 08:49] LABS: Glucose Estimated Average 100 mg/dL (80-131); Hemoglobin A1C 5.1 % Hgb (4.8-6.0)
[2025-06-27 08:51] LABS: Parathyroid Hormone Intact 47.9 pg/ml (18.5-88.0)
[2025-06-27 08:58] LABS: Vitamin B12 582 pg/mL (211-911); Vitamin D 25 Hydroxy Total 42.3 ng/mL (7.3-40.2)
[2025-06-27 09:01] LABS: Alanine Aminotransferase 18 U/L (10-49); Albumin, Serum 4.7 gm/dL (3.4-4.8); Alkaline Phosphatase 89 U/L (46-116); Anion Gap 9 (7-16); Aspartate Amino Transferase 20 U/L (0-34); BUN/Creatinine Ratio 18 Ratio (12-20); Bilirubin,Direct 0.2 mg/dL (0.0-0.3); Bilirubin,Total 0.5 mg/dL (0.3-1.2); Blood Urea Nitrogen 18 mg/dL (9-23); Calcium 9.6 mg/dL (8.3-10.6); Carbon Dioxide 28.3 mMol/L (20.0-31.0); Cardiac Risk Estimate 2.7 RATIO (3.7-5.6); Chloride 108 mMol/L (98-107); Cholesterol 174 mg/dL (132-200); Creatinine (Component) 1.0 mg/dL (0.6-1.3); Glucose 103 mg/dL (74-106); HDL Cholesterol 64 mg/dL (40-60); LDL Cholesterol,Calculated 96 mg/dL (0-130); Osmolality,Calculated 290 (275-295); Phosphorous 3.8 mg/dL (2.4-5.1); Potassium 5.4 mMol/L (3.4-5.1); Sodium 145 mMol/L (136-145); Thyroid Stimulating Hormone 2.26 uIU/mL (0.55-4.78); Total Protein 6.7 gm/dL (5.7-8.2); Triglycerides 68 mg/dL (30-150); Uric Acid 7.0 mg/dL (3.1-7.8); eGFR 58 See Note
== END | disposition home or self-care (01) ==
LOC: COPL 07:07
PROVIDERS: PCP Internal Medicine; Referring Provider Internal Medicine; Visit Provider Internal Medicine
DX: Z00.00 Encounter for general adult medical examination without abnormal findings (principal); I12.9 Hypertensive chronic kidney disease with stage 1 through stage 4 chronic kidney disease, or unspecified chronic kidney disease; E11.22 Type 2 diabetes mellitus with diabetic chronic kidney disease; N18.30 Chronic kidney disease, stage 3 unspecified; E78.5 Hyperlipidemia, unspecified; E55.9 Vitamin D deficiency, unspecified; E21.3 Hyperparathyroidism, unspecified
CPT/HCPCS: 36415; 80048; 80061; 80069; 80076; 81001; 82306; 82607; 83036; 83970; 84100; 84443; 84550; 85025

== ENCOUNTER → 2025-06-29 | Outpatient (CLI) | payer MEDICARE, SELFPAY ==
--- NOTE | 2025-06-29 09:30 | XR_ITS ---
Examination: Breast ultrasound complete, bilateral Date and time of exam: June 29, 2025, 0913 hours INDICATIONS: Personal history right breast cancer 2003 with lumpectomy Technique: Real-time grayscale ultrasonographic imaging bilateral breasts, including all 4 quadrants as well as nipple retroareolar and axillary regions. Findings: Sonographic images right breast No cystic or solid mass Sonographic images left breast 3:00 cyst 2 x 2 mm No solid nodules IMPRESSION: BI-RADS Category 2: Benign findings
--- NOTE | 2025-06-29 10:30 | XR_ITS ---
Examination: Screening digital mammography, bilateral Computer aided detection 3-D breast Tomosynthesis, bilateral Date and time of exam: June 29, 2025, 0906 hours, compared to mammograms dating to December 19, 2021 Indication: Screening Technique: Nonmagnified MLO, CC views of the breasts to been obtained, reconstructed from 3-D Tomosynthesis images. R2 computer aided detection program utilized for evaluation of suspicious masses and/or abnormal calcifications. 3-D Tomosynthesis images obtained. Findings: Scattered areas of fibroglandular density. Right breast mastectomy No interval suspicious masses Benign calcifications Impression: BI-RADS category II: Benign Findings. Recommend 1 year follow-up mammogram.
== END | disposition home or self-care (01) ==
PROVIDERS: PCP Internal Medicine; Referring Provider Internal Medicine; Visit Provider Internal Medicine
DX: Z12.31 Encounter for screening mammogram for malignant neoplasm of breast (principal); R92.323 Mammographic fibroglandular density, bilateral breasts; R92.1 Mammographic calcification found on diagnostic imaging of breast; Z85.3 Personal history of malignant neoplasm of breast
CPT/HCPCS: 76641; 77063; 77067